=== PATIENT | female | born 2000 | race African-American/Black ===

== ENCOUNTER 2021-09-07 16:50 | Emergency (ER) | payer MEDICAID ==
[~2021-09-07] VITALS: Ht 162.6 cm; Wt 56.0 kg
[2021-09-07 16:59] VITALS: BP 115/63
== END 2021-09-07 17:35 | disposition left against medical advice (07) ==
LOC: ER 16:50
DX: M25.571 Pain in right ankle and joints of right foot (principal); M25.531 Pain in right wrist; M79.641 Pain in right hand; V48.4XXA Person boarding or alighting a car injured in noncollision transport accident, initial encounter; Y93.89 Activity, other specified; Y92.488 Other paved roadways as the place of occurrence of the external cause
CPT/HCPCS: 99283

== ENCOUNTER 2022-02-19 14:02 | Emergency (ER) | payer MEDICAID ==
[2022-02-19] MEDS ORDERED: NITR-87 MT (20:19)
== END 2022-02-19 15:17 | disposition left against medical advice (07) ==
LOC: ER 15:02
DX: Z53.21 Procedure and treatment not carried out due to patient leaving prior to being seen by health care provider (principal)

== ENCOUNTER 2022-02-19 15:26 | Emergency (ER) | payer MEDICAID ==
[~2022-02-19] VITALS: Ht 160 cm; Wt 53.0 kg
[2022-02-19 15:27] VITALS: BP 123/77
[2022-02-19] MEDS ORDERED: ONDANSETRON 4MG ODT PO ONE (19:00)
[2022-02-19] MEDS ORDERED: ACETAMINOPHEN 325MG TABLET PO ONE (19:00)
[2022-02-19 19:17] LABS: CLARITY URINE CLEAR (CLEAR); COLOR URINE DARK YELLOW (YELLOW); KETONES URINE TRACE (NEGATIVE); LEUKOCYTE ESTERASE URINE NEGATIVE (NEGATIVE); NITRITE URINE NEGATIVE (NEGATIVE); OCCULT BLOOD URINE NEGATIVE (NEGATIVE); PH URINE 6.5 (4.5-8.0); PROTEIN URINE TRACE (NEGATIVE)
[2022-02-19 19:26] LABS: BASOPHILS % 0.2 % (0.0-2.0); EOSINOPHILS % 0.6 % (0.0-5.0); HEMATOCRIT. 38.5 % (36.0-48.0); HEMOGLOBIN. 13.3 g/dL (12.0-16.0); LYMPHOCYTES % 12.1 % (20.0-50.0); MEAN CORPUSCULAR HEMOGLOBIN 33.8 pg (28.0-32.0); MEAN CORPUSCULAR VOLUME 97.7 fL (81.0-99.0); MEAN PLATELET VOLUME 8.3 fl (7.4-10.4); MONOCYTES % 11.4 % (2.0-8.0); NEUTROPHILS % 75.7 % (40.0-76.0); PLATELET 214 x1000/uL (130-400); RED BLOOD CELL COUNT 3.94 mill/uL (4.2-5.4); RED CELL DISTRIBUTION WIDTH 12.4 % (11.6-14.6)
[2022-02-19 19:39] LABS: CHLORIDE 101 mEq/L (98-107)
[2022-02-19 19:42] LABS: HCG SCREEN NEGATIVE
[2022-02-19] MEDS ORDERED: NITR-87 MT (20:19)
== END 2022-02-19 20:43 | disposition home or self-care (01) ==
LOC: ER 15:26
DX: N39.0 Urinary tract infection, site not specified (principal); R05.8 Other specified cough
CPT/HCPCS: 36415; 71045; 80053; 81003; 81025; 84703; 85025; 99284; Q0162